=== PATIENT | male | born 1950 | race Caucasian/White ===

== ENCOUNTER 2016-12-29 14:48 | Emergency (ER) | payer OTHER, MEDICARE ==
[~2016-12-29] VITALS: Ht 177.8 cm; Wt 96.6 kg
[2016-12-29 14:48] VITALS: BP 194/97; PULSE 48; RESP 15; TEMP 97.9; O2SAT 99
[2016-12-29] MEDS ORDERED: DIPH-TET-PERTUS Vaccine 0.5 ML VIAL (ADACEL) IM ONE (15:15)
[2016-12-29 17:08] VITALS: BP 142/83; PULSE 56; RESP 17; TEMP 97.9; O2SAT 98
== END 2016-12-29 17:08 | disposition home or self-care (01) ==
LOC: SED 14:48
DX: S61.452A Open bite of left hand, initial encounter (principal); E11.9 Type 2 diabetes mellitus without complications; I10 Essential (primary) hypertension; Z95.1 Presence of aortocoronary bypass graft; Z98.890 Other specified postprocedural states; W54.0XXA Bitten by dog, initial encounter; Y93.89 Activity, other specified; Y99.8 Other external cause status; Y92.89 Other specified places as the place of occurrence of the external cause
CPT/HCPCS: 90715; 99284

== ENCOUNTER 2019-05-09 12:25 | Outpatient (CLI) | payer OTHER, MEDICARE ==
[~2019-05-09 12:25] MED LIST: BENA20TA75 PO; CARV12.548 PO; DIVA250T PO; LORA-259 PO
== END 2019-05-09 20:53 | disposition home or self-care (01) ==
LOC: SCT 12:25
PROVIDERS: ATTEND Specialist
DX: G31.89 Other specified degenerative diseases of nervous system (principal); I61.9 Nontraumatic intracerebral hemorrhage, unspecified
CPT/HCPCS: 70450-TC

== ENCOUNTER 2019-05-21 15:54 | Emergency (ER) | payer OTHER, MEDICARE ==
[~2019-05-21] VITALS: Ht 177.8 cm; Wt 94.8 kg
[2019-05-21 15:55] VITALS: BP_SYST 201
[2019-05-21 18:03] VITALS: BP_SYST 188
== END 2019-05-21 18:01 | disposition home or self-care (01) ==
LOC: SED 15:54
DX: S62.101A Fracture of unspecified carpal bone, right wrist, initial encounter for closed fracture (principal); E11.9 Type 2 diabetes mellitus without complications; I10 Essential (primary) hypertension; Z79.899 Other long term (current) drug therapy; W01.198A Fall on same level from slipping, tripping and stumbling with subsequent striking against other object, initial encounter; Y93.89 Activity, other specified; Y92.89 Other specified places as the place of occurrence of the external cause; Y99.8 Other external cause status
CPT/HCPCS: 71046-TC; 73090; 99283

== ENCOUNTER 2019-06-11 08:19 | Outpatient (CLI) | payer OTHER, MEDICARE | END 2019-06-11 21:00 | disposition home or self-care (01) | LOC: SCT 08:19 | PROVIDERS: ATTEND Specialist | DX: G93.89 Other specified disorders of brain (principal); D51.9 Vitamin B12 deficiency anemia, unspecified; E66.9 Obesity, unspecified; E61.1 Iron deficiency; E55.9 Vitamin D deficiency, unspecified; I70.90 Unspecified atherosclerosis; Z98.84 Bariatric surgery status | CPT/HCPCS: 70450-TC ==

== ENCOUNTER 2019-11-30 23:07 | Inpatient (IN) | payer OTHER, MEDICARE ==
[~2019-11-30] VITALS: Ht 180.3 cm; Wt 85.7 kg
[2019-11-30 23:07] VITALS: BP_SYST 128
[2019-11-30] MEDS ORDERED: PANTOPRAZOLE SODIUM 80 MG in NS 100 ML IV ONE (23:45)
[2019-11-30] MEDS ORDERED: PANTOPRAZOLE SODIUM 40 MG in NS 50 ML IV ONE (23:45)
[2019-12-01] VITALS (21 sets, daily range): BP systolic 89–146
[2019-12-01] MEDS ORDERED: PANTOPRAZOLE SODIUM 40 MG/VIAL (PROTONIX) ONE ×3 (00:20→05:58)
[2019-12-01 00:24] LABS: BASOPHILS # (AUTO) 0.1 K/uL (0.0-0.2); BASOPHILS % (AUTO) 0.5 % (0.0-2.0); EOSINOPHILS % (AUTO) 0.4 % (0.0-4.0); LYMPHOCYTES # (AUTO) 1.5 K/uL (1.0-5.5); LYMPHOCYTES % (AUTO) 15.9 % (20.5-51.5); MEAN CORPUSCULAR HEMOGLOBIN 33 pg (27-31); MEAN CORPUSCULAR HGB CONC 34 % (32-36); MEAN CORPUSCULAR VOLUME 97 fL (79.0-98.0); MONOCYTES # (AUTO) 0.6 K/uL (0.0-1.0); MONOCYTES % (AUTO) 5.8 % (1.7-9.3); NEUTROPHILS # (AUTO) 7.5 K/uL (1.8-7.7); NEUTROPHILS % (AUTO) 77.4 % (40.0-70.0); PLATELET COUNT (AUTO) 159 K/uL (130-430); RED CELL DISTRIBUTION WIDTH 14.7 % (9.0-15.0); WHITE BLOOD COUNT (AUTO) 9.7 K/uL (4.8-10.8)
[2019-12-01 00:35] LABS: CALCIUM 8.1 mg/dL (8.4-11.0); CREATININE 1.44 mg/dL (0.55-1.30)
[2019-12-01 00:39] LABS: INR 1.1 (0.80-1.20); PROTHROMBIN TIME 11.3 SECS (9.5-12.5)
[2019-12-01 00:42] LABS: ALBUMIN 2.9 g/dL (3.4-4.8); HEMATOCRIT 17.4 % (36-54); TOTAL BILIRUBIN 0.3 mg/dL (0.0-1.0)
[2019-12-01] MEDS ORDERED: BENA20TA9 PO (03:44)
[2019-12-01] MEDS: PANTOPRAZOLE SODIUM 40 MG in NS 50 ML IV SCH ×4 (06:08→19:45)
[2019-12-01 11:36] LABS: HEMOGLOBIN 5.9 g/dL (14.0-18.0)
[2019-12-01] MEDS ORDERED: ACETAMINOPHEN 325 MG TABLET PO PRN (18:00)
[2019-12-01] MEDS ORDERED: INSULIN REGULAR, HUMAN 100 UNITS/ML, 10 ML VIAL (humuLIN R) SUBCUT PRN (18:00)
[2019-12-01] MEDS ORDERED: NACL 0.9% 1,000 ML IV SCH (18:00)
[2019-12-01] MEDS ORDERED: ONDANSETRON HCL 4 MG/2 ML VIAL IVP PRN (18:00)
[2019-12-01] MEDS: NACL 0.9% 1,000 ML IV SCH (18:39)
[2019-12-01] MEDS: HYDROcodone/ACETAMIN 10-325 MG TAB PO PRN ×2 (18:46→23:21)
[2019-12-01] MEDS: DIVALPROEX SODIUM 250 MG TAB.SR.24H (DEPAKOTE ER) PO SCH (20:15)
[2019-12-01] MEDS: CARVEDILOL 12.5 MG TABLET (COREG) PO SCH (22:05)
[2019-12-01] MEDS: LISINOPRIL 20 MG TABLET PO SCH (22:07)
[2019-12-02] VITALS (26 sets, daily range): BP systolic 82–143
[2019-12-02] MEDS: PANTOPRAZOLE SODIUM 40 MG in NS 50 ML IV SCH ×5 (01:18→20:44)
[2019-12-02 06:09] LABS: BASOPHILS # (AUTO) 0.1 K/uL (0.0-0.2); BASOPHILS % (AUTO) 0.8 % (0.0-2.0); EOSINOPHILS # (AUTO) 0.3 K/uL (0.0-0.4); EOSINOPHILS % (AUTO) 3.5 % (0.0-4.0); HEMATOCRIT 23.7 % (36-54); LYMPHOCYTES # (AUTO) 2.5 K/uL (1.0-5.5); LYMPHOCYTES % (AUTO) 33.3 % (20.5-51.5); MEAN CORPUSCULAR HEMOGLOBIN 32 pg (27-31); MEAN CORPUSCULAR HGB CONC 34 % (32-36); MEAN CORPUSCULAR VOLUME 95 fL (79.0-98.0); MONOCYTES # (AUTO) 0.7 K/uL (0.0-1.0); MONOCYTES % (AUTO) 9.3 % (1.7-9.3); NEUTROPHILS # (AUTO) 3.9 K/uL (1.8-7.7); NEUTROPHILS % (AUTO) 53.1 % (40.0-70.0); PLATELET COUNT (AUTO) 129 K/uL (130-430); RED BLOOD CELL COUNT(AUTO) 2.51 MIL/uL (4.2-6.2); WHITE BLOOD COUNT (AUTO) 7.4 K/uL (4.8-10.8)
[2019-12-02 06:16] LABS: PROTHROMBIN TIME 10.3 SECS (9.5-12.5)
[2019-12-02] MEDS ORDERED: SIMETHICONE 40 MG/0.6 ML ML ONE (06:36)
[2019-12-02] MEDS ORDERED: fentaNYL CITRATE/PF 100 MCG/2 ML AMP ONE (06:37)
[2019-12-02 06:42] LABS: CREATININE 1.18 mg/dL (0.55-1.30); PHOSPHORUS 3.4 mg/dL (2.7-4.5); POTASSIUM 3.9 mmol/L (3.5-5.1); TOTAL BILIRUBIN 0.4 mg/dL (0.0-1.0)
[2019-12-02] MEDS: MIDAZOLAM HCL 5 MG/5 ML VIAL ONE ×4 (07:31→07:42)
[2019-12-02] MEDS ORDERED: EPINEPHrine JECT 0.1 MG/ML SYR IVP ONE (08:15)
[2019-12-02] MEDS: LISINOPRIL 20 MG TABLET PO SCH ×2 (09:37→20:44)
[2019-12-02] MEDS: NACL 0.9% 1,000 ML IV SCH ×2 (09:37→20:45)
[2019-12-02] MEDS: LORazepam 1 MG TABLET PO SCH (09:38)
[2019-12-02] MEDS: CARVEDILOL 12.5 MG TABLET (COREG) PO SCH ×2 (09:38→20:51)
[2019-12-02] MEDS: HYDROcodone/ACETAMIN 10-325 MG TAB PO PRN (10:11)
[2019-12-02] MEDS: DIVALPROEX SODIUM 250 MG TAB.SR.24H (DEPAKOTE ER) PO SCH (20:43)
[2019-12-02] MEDS: HYDROcodone/ACETAMIN 5-325 MG TAB (NORCO/ VICODIN) PO PRN (20:49)
[2019-12-03] VITALS (13 sets, daily range): BP systolic 121–154
[2019-12-03] MEDS: PANTOPRAZOLE SODIUM 40 MG in NS 50 ML IV SCH ×2 (02:29→06:41)
[2019-12-03] MEDS: HYDROcodone/ACETAMIN 5-325 MG TAB (NORCO/ VICODIN) PO PRN (02:35)
[2019-12-03 06:41] LABS: BASOPHILS % (AUTO) 0.5 % (0.0-2.0); EOSINOPHILS # (AUTO) 0.2 K/uL (0.0-0.4); LYMPHOCYTES # (AUTO) 1.4 K/uL (1.0-5.5); LYMPHOCYTES % (AUTO) 18.3 % (20.5-51.5); MEAN CORPUSCULAR HEMOGLOBIN 33 pg (27-31); MEAN CORPUSCULAR HGB CONC 35 % (32-36); MEAN CORPUSCULAR VOLUME 94 fL (79.0-98.0); MONOCYTES # (AUTO) 0.9 K/uL (0.0-1.0); MONOCYTES % (AUTO) 10.9 % (1.7-9.3); NEUTROPHILS # (AUTO) 5.4 K/uL (1.8-7.7); NEUTROPHILS % (AUTO) 68.3 % (40.0-70.0); PLATELET COUNT (AUTO) 116 K/uL (130-430); RED BLOOD CELL COUNT(AUTO) 2.14 MIL/uL (4.2-6.2); RED CELL DISTRIBUTION WIDTH 14.5 % (9.0-15.0); WHITE BLOOD COUNT (AUTO) 7.9 K/uL (4.8-10.8)
[2019-12-03 07:44] LABS: ALBUMIN 2.6 g/dL (3.4-4.8); CALCIUM 7.6 mg/dL (8.4-11.0); CREATININE 0.99 mg/dL (0.55-1.30); POTASSIUM 3.8 mmol/L (3.5-5.1); TOTAL BILIRUBIN 0.5 mg/dL (0.0-1.0)
[2019-12-03 07:59] LABS: HEMATOCRIT 20.1 % (36-54)
[2019-12-03] MEDS: LORazepam 1 MG TABLET PO SCH (08:25)
[2019-12-03] MEDS: PANTOPRAZOLE SODIUM 40 MG/VIAL (PROTONIX) IVP SCH ×2 (08:25→20:39)
[2019-12-03] MEDS: CARVEDILOL 12.5 MG TABLET (COREG) PO SCH ×2 (08:26→20:38)
[2019-12-03] MEDS: LISINOPRIL 20 MG TABLET PO SCH ×2 (08:26→20:38)
[2019-12-03] MEDS: HYDROcodone/ACETAMIN 10-325 MG TAB PO PRN ×2 (09:17→21:03)
[2019-12-03] MEDS: NACL 0.9% 1,000 ML IV SCH ×2 (10:30→16:34)
[2019-12-03 15:28] LABS: BASOPHILS % (AUTO) 0.6 % (0.0-2.0); EOSINOPHILS # (AUTO) 0.2 K/uL (0.0-0.4); EOSINOPHILS % (AUTO) 2.3 % (0.0-4.0); HEMATOCRIT 25.5 % (36-54); HEMOGLOBIN 8.7 g/dL (14.0-18.0); LYMPHOCYTES # (AUTO) 1.4 K/uL (1.0-5.5); LYMPHOCYTES % (AUTO) 17.7 % (20.5-51.5); MEAN CORPUSCULAR HEMOGLOBIN 32 pg (27-31); MEAN CORPUSCULAR HGB CONC 34 % (32-36); MEAN CORPUSCULAR VOLUME 94 fL (79.0-98.0); MONOCYTES # (AUTO) 0.8 K/uL (0.0-1.0); MONOCYTES % (AUTO) 10.1 % (1.7-9.3); NEUTROPHILS # (AUTO) 5.4 K/uL (1.8-7.7); NEUTROPHILS % (AUTO) 69.3 % (40.0-70.0); PLATELET COUNT (AUTO) 120 K/uL (130-430); RED BLOOD CELL COUNT(AUTO) 2.71 MIL/uL (4.2-6.2); RED CELL DISTRIBUTION WIDTH 14.3 % (9.0-15.0); WHITE BLOOD COUNT (AUTO) 7.8 K/uL (4.8-10.8)
[2019-12-03] MEDS: DIVALPROEX SODIUM 250 MG TAB.SR.24H (DEPAKOTE ER) PO SCH (20:40)
[2019-12-04] MEDS: HYDROcodone/ACETAMIN 5-325 MG TAB (NORCO/ VICODIN) PO PRN
[2019-12-04] MEDS: NACL 0.9% 1,000 ML IV SCH (06:52)
[2019-12-04 07:45] VITALS: BP_SYST 160
[2019-12-04 07:52] LABS: CALCIUM 8.4 mg/dL (8.4-11.0); CREATININE 0.98 mg/dL (0.55-1.30); POTASSIUM 4.2 mmol/L (3.5-5.1)
[2019-12-04] MEDS: PANTOPRAZOLE SODIUM 40 MG/VIAL (PROTONIX) IVP SCH ×2 (09:26→20:10)
[2019-12-04] MEDS: LORazepam 1 MG TABLET PO SCH (09:26)
[2019-12-04] MEDS: LISINOPRIL 20 MG TABLET PO SCH ×2 (09:26→20:11)
[2019-12-04] MEDS: CARVEDILOL 12.5 MG TABLET (COREG) PO SCH ×2 (09:27→20:10)
[2019-12-04] MEDS: HYDROcodone/ACETAMIN 10-325 MG TAB PO PRN ×2 (09:35→20:10)
[2019-12-04 12:49] VITALS: BP_SYST 148
[2019-12-04 16:52] VITALS: BP_SYST 131
[2019-12-04] MEDS ORDERED: PRO40 PO (19:33)
[2019-12-04 20:32] VITALS: BP_SYST 142
[2019-12-04 20:37] VITALS: BP_SYST 142
== END 2019-12-04 21:20 | disposition home or self-care (01) | DRG 377 ==
LOC: SED 23:07 → SIC 12-01 02:02 → STU 12-03 17:04
PROVIDERS: ADMIT Preventive Medicine Preventive Medicine/Occupational Environmental Medicine; ATTEND Preventive Medicine Preventive Medicine/Occupational Environmental Medicine
PROC: 30233N1 Transfusion of Nonautologous Red Blood Cells into Peripheral Vein, Percutaneous Approach (ICD-10-PCS; 2019-12-01)
PROC: 0W3P8ZZ Control Bleeding in Gastrointestinal Tract, Via Natural or Artificial Opening Endoscopic (ICD-10-PCS; principal; 2019-12-02 09:00)
DX: K28.4 Chronic or unspecified gastrojejunal ulcer with hemorrhage (principal); E43 Unspecified severe protein-calorie malnutrition; N17.9 Acute kidney failure, unspecified; D50.0 Iron deficiency anemia secondary to blood loss (chronic); E11.22 Type 2 diabetes mellitus with diabetic chronic kidney disease; I12.9 Hypertensive chronic kidney disease with stage 1 through stage 4 chronic kidney disease, or unspecified chronic kidney disease; D69.6 Thrombocytopenia, unspecified; N18.9 Chronic kidney disease, unspecified; E11.65 Type 2 diabetes mellitus with hyperglycemia; E78.5 Hyperlipidemia, unspecified; E83.51 Hypocalcemia; E66.9 Obesity, unspecified; E83.52 Hypercalcemia; F32.9 Major depressive disorder, single episode, unspecified; F41.9 Anxiety disorder, unspecified; M24.542 Contracture, left hand; Z86.73 Personal history of transient ischemic attack (TIA), and cerebral infarction without residual deficits; Z98.84 Bariatric surgery status; Z79.899 Other long term (current) drug therapy; Z68.26 Body mass index [BMI] 26.0-26.9, adult
CPT/HCPCS: 36415; 36430; 43255; 71045; 73564; 73590-TC; 76770; 80048; 80053; 82962; 83735-TC; 84100-TC; 85025; 85610-TC; 85730-TC; 86886; 86900; 86901; 86920; 87081; 93005; 96365; 99285; C9113; G0378; J0171; J1815; J2250; J3010; J7030; J7050; P9021